=== PATIENT | male | born 1985 | race African-American/Black ===

== ENCOUNTER 2021-10-20 06:11 | Emergency (ER) | payer BC ==
[~2021-10-20] VITALS: Ht 172.7 cm; Wt 79.8 kg
--- NOTE | 2021-10-20 06:30 | NUR ---
BIBS C/O R SIDED NO RADIATING CHEST PAIN SINCE 444 THAT HAS PROGRESSIVELY WORSTENED IN INTENSITY. PT DENIES ANY CARDIAC HX SKIN SIGNS WNL -N/V. PT CHANGED INTO A GOWN AND PLACED ON WAITER/WAITRESS ECONOMY CLASS AND PULSE OX. ALL V/S WNL.
[2021-10-20] MEDS ORDERED: KETOROLAC TROMETHAMINE INJ 30 MG/ML VIAL IM ONE (07:00)
[2021-10-20] MEDS ORDERED: KETOROLAC TROMETHAMINE 15 MG/ML VIAL ONE (07:02)
--- NOTE | 2021-10-20 07:09 | NUR ---
EKG AT BEDSIDE
--- NOTE | 2021-10-20 07:11 | NUR ---
XRAY AT BEDSIDE
[2021-10-20 07:30] LABS: BASOPHILS # (AUTO) 0.1 K/uL (0.0-0.2); BASOPHILS % (AUTO) 0.7 % (0.0-2.0); EOSINOPHILS % (AUTO) 1.2 % (0.0-6.0); HEMATOCRIT 44 % (39-51); HEMOGLOBIN 14.7 g/dL (13.5-17.5); LYMPHOCYTES # (AUTO) 1.4 K/uL (0.8-4.8); LYMPHOCYTES % (AUTO) 18.4 % (20.0-44.0); MEAN CORPUSCULAR HGB CONC 33 g/dl (31.0-36.0); MEAN CORPUSCULAR VOLUME 87 fL (80-96); MONOCYTES # (AUTO) 0.6 K/uL (0.1-1.30); NEUTROPHILS # (AUTO) 5.4 K/uL (1.8-8.9); NEUTROPHILS % (AUTO) 71.7 % (43.0-81.0); PLATELET COUNT (AUTO) 173 K/uL (150-450); RED BLOOD CELL COUNT(AUTO) 5.07 MIL/uL (4.5-6.0); WHITE BLOOD COUNT (AUTO) 7.5 K/uL (4.3-11.0)
--- NOTE | 2021-10-20 07:33 | NUR ---
RECEIVED REPORT FROM STEPHEN VARGAS FOR JAYANT. PT IS AAOX4, NOT IN RESPIRATORY DISTRESS, V/S STABLE, KEPT RESTED AND COMFORTABLE. WILL CONTINUE TO MONITOR.
[2021-10-20 07:46] LABS: CALCIUM, SERUM 8.6 mg/dL (8.5-10.1); POTASSIUM 3.6 mmol/L (3.5-5.1)
--- NOTE | 2021-10-20 08:46 | NUR ---
CALLED LAB FOR KATARZYNA
--- NOTE | 2021-10-20 10:18 | NUR ---
TREND INVESTIGATOR AT BEDSIDE FOR 2ND TROPONIN DRAW
--- NOTE | 2021-10-20 12:08 | NUR ---
Patient discharged to home in stable condition. Written and verbal after care instructions given. Patient verbalizes understanding of instruction.
[2021-10-20 12:09] VITALS: BP 130/84
== END 2021-10-20 12:09 | disposition home or self-care (01) ==
LOC: ER 06:18
DX: R07.89 Other chest pain (principal)
CPT/HCPCS: 36415; 71045; 80048; 84484 ×2; 85025; 93005; 96372; 99285; J1885